=== PATIENT | male | born 1980 | race Caucasian/White ===

== ENCOUNTER 2022-03-01 11:00 | Outpatient (CLI) | payer OTHER, SELFPAY ==
[2022-03-01 12:09] LABS: Basophils # 0.1 10^3/uL (0.0-0.1); Eosinophils # 0.6 10^3/uL (0.0-0.8); Eosinophils % 7.2 %; Hematocrit 45.3 % (42.0-52.0); Hemoglobin 15.5 g/dL (11.7-16.6); Lymphocytes # 1.7 10^3/uL (0.8-4.8); Lymphocytes % 21.6 %; Mean Corpuscular HGB Conc 34.2 g/dL (30.0-36.0); Mean Corpuscular Hemoglobin 31.8 pg (28.0-34.0); Mean Corpuscular Volume 92.8 fl (80-94); Mean Platelet Volume 9.5 fL (7.4-10.4); Monocytes # 0.6 10^3/uL (0.2-0.9); Monocytes % 7.7 %; Neutrophils # 4.86 10^3/uL (1.8-7.7); Neutrophils % 62.1 %; Nucleated Red Blood Cells % 0 %; Platelet Count 287 10^3/cmm (130-400); Red Blood Count 4.88 10^6/uL (4.1-5.3); Red Cell Distribution Width 11.9 % (12.1-15.1); White Blood Count 7.8 10^3/uL (4.0-10.0)
[2022-03-01 12:21] LABS: Chol HDL Ratio 4.47 mg/dL (1.0-5.00); Cholesterol 152 mg/dL (0-200); HDL Cholesterol 34 mg/dL (60-100); LDL Cholesterol Calculated 101 mg/dL (50-129); LDL HDL Ratio 2.97 RATIO (0.00-3.22); Thyroid Stimulating Hormone 1.66 uIU/mL (0.27-4.20); Triglycerides 83 mg/dL (0-150)
== END 2022-03-01 11:01 | disposition home or self-care (01) ==
LOC: LAB 11:10
PROVIDERS: PCP Family Medicine; Visit Provider Family Medicine
DX: I10 Essential (primary) hypertension (principal)
CPT/HCPCS: 36415; 80061; 84443; 85025

== ENCOUNTER 2022-06-13 15:07 | Emergency (ER) | payer OTHER, SELFPAY ==
[2022-06-13 15:09] VITALS: BP 133/90; PULSE 81; RESP 14; TEMP 36.6; O2SAT 99
--- NOTE | 2022-06-13 15:21 | W.ED.SKABFB ---
HPI - Skin/Abscess/Foreign Bdy General: Chief complaint: Skin/Abscess/Foreign Body Stated complaint: allergic reaction to meds Time Seen by Provider: 06/13/22 15:15 History of Present Illness: This patient is a 42 year old with a rash that he attributes to an allergic reaction to antibiotics. He was started on clindamycin 8 days ago for cellulitis on the left lower leg. That has improved, but he woke up this morning with this rash. He has had previous rashes like this whenever he takes anything with aspirin or ibuprofen. He also gets throat swelling and chest tightness with it sometimes - not too bad today. He took benadryl 50 mg early this morning and it helped some, but it got bad again this afternoon. he took another 50 mg at around 1:30 but it didn't seem to do much. The cellulitis is much better. He has had diarrhea this week which he assumed was from the antibiotic. PFS ED PFSH: Family History Father Diabetes Social History Smoking and tobacco status: former smoker Second hand smoke exposure: No Smoking risk assessment/counseling performed?: No Alcohol intake: never Desire information about alcohol rehabilitation?: No Counseling given: No Desire information about substance/drug rehabilitation?: No Counseling given: No Adopted: No Caregiver/support person: No Lives independently: Yes Household members: spouse Housing: House Marital status: Number of children: 0 Highest education level completed: Associate Degree: Occupational, Technical, Vocational Program service: No Current occupational status: employed History of recent travel: No Physical Exam Const: COMMON NORMALS: no acute distress, patient oriented x3, no limitations and alert GENERAL APPEARANCE: cooperative and comfortable HENMT: HEAD & SCALP: normal to inspection FACE & SINUS: normal facial exam Eye: GENERAL EYE: appearance normal, both eyes and all related structures Neck/C-Spine: COMMON NORMALS: supple, no meningeal signs and no JVD Chest: COMMONS NORMALS: normal inspection of the chest Resp: COMMON NORMALS: normal respiratory effort, No use of accessory muscles and clear to auscultation bilaterally AUSCULTATION: clear to auscultation bilaterally Cardio: COMMON NORMALS: no JVD, regular rate, regular rhythm and No murmurs present (Cardio) RATE: regular rate RHYTHM: regular rhythm GI: COMMON NORMALS: Normal to inspection, nondistended, normoactive bowel sounds present, Soft to palpation and non-tender INSPECTION: Yes normal to inspection AUSCULTATION: Yes normoactive bowel sounds PALPATION: Yes Soft to palpation Back/Pelvis: COMMON NORMALS: thoracic and lumbar spine normal to inspection Extremity: COMMON NORMALS: normal to inspection Neuro: COMMON NORMALS: patient oriented x3, moves all extremities, no focal motor deficits and no sensory deficits noted SENSORIUM/ORIENTATION: Yes alert MENINGEAL SIGNS: Yes no meningeal signs Psych: COMMON NORMALS: mental status grossly normal, cooperative and normal affect Skin: NARRATIVE SKIN EXAM: maculopapular skin rash diffusely on extremities,torso, face Course Vital Signs: Vital signs: Vital Signs Temperature 97.8 F 06/13/22 15:09 Pulse Rate 95 06/13/22 15:40 Respiratory Rate 16 06/13/22 15:40 Blood Pressure 133/90 06/13/22 15:09 Pulse Oximetry 96 06/13/22 15:40 Oxygen Delivery Me thod 06/13/22 15:09 MDM - Skin/Abscess/Foreign Bdy Medicial Decision Making On clindamycin for cellulitis which is resolved. Benadryl minimal help. No anaphylaxis. Prior episodes of anaphylaxis with aspirin. Will give steroids for a few days, pepcid. Stop clindamycin. Discharge Plan Discharge Patient Disposition: Home Clinical Impression: Allergic reaction to drug Condition: Stable Prescriptions: New prednisone 20 mg tablet 40 mg PO DAILY 3 Days Qty: 6 0RF Discontinued clindamycin HCl 300 mg capsule 300 mg PO TID Qty: 30 0RF No Action lisinopril 10 mg tablet 10 mg PO DAILY omeprazole 40 mg capsule,delayed release(DR/EC) 40 mg PO DAILY Discharge Orders: Discharge ED (Routine); Ordered 06/13/22 Ordered By: Sophia Aguilera Referrals: Fide Leonardo FNP-C [Primary Care Provider] - Discharge Diet: Usual diet Discharge Activity: Resume usual activity Patient Instructions: Opioid Safety, Pain Management Activity Restrictions/Additional Instructions: Continue Benadryl 1 - 2 tablets every 6 hours if needed. Take pepcid over the counter, 2 tabs daily for the next few days. Take the prednisone as prescribed. Return to the ED if new or worse symptoms. Coding Level of Care Code ED Link Trainer Operator for Chg Fwd Exam Comprehensive
--- NOTE | 2022-06-13 15:23 | PC.NURSE ---
pt reports was started on clindamycin for cellulitis in his legs. pt reports rash began today. denies any airway involvement, no dyspnea noted. lung sounds clear bilat.
[2022-06-13] MEDS: famotidine 20 mg Tablet 40 MG PO (15:27)
[2022-06-13] MEDS: predniSONE 20 mg Tablet 60 MG PO (15:27)
[2022-06-13 15:40] VITALS: PULSE 95; RESP 16; O2SAT 96
== END 2022-06-13 15:41 | disposition home or self-care (01) ==
PROVIDERS: Emergency Provider Emergency Medicine; PCP Nurse Practitioner Family
DX: L27.0 Generalized skin eruption due to drugs and medicaments taken internally (principal); T36.8X5A Adverse effect of other systemic antibiotics, initial encounter; Z87.891 Personal history of nicotine dependence
CPT/HCPCS: 99283; J7512

== ENCOUNTER → 2022-07-27 08:54 | Outpatient (BNVA) | payer OTHER, SELFPAY | PROVIDERS: PCP Nurse Practitioner Family; Visit Provider Dermatology | DX: Z01.89 Encounter for other specified special examinations (principal) ==

== ENCOUNTER → 2022-09-14 08:25 | Outpatient (BNVA) | payer OTHER, SELFPAY | PROVIDERS: PCP Nurse Practitioner Family; Visit Provider Nurse Practitioner | DX: R05.9 Cough, unspecified (principal) | CPT/HCPCS: 71046; 80048; 85025 ==

== ENCOUNTER 2023-02-14 14:12 | Emergency (ER) | payer OTHER, SELFPAY ==
[2023-02-14 14:19] VITALS: BP 113/76; PULSE 89; RESP 16; TEMP 36.9; O2SAT 97; BMI 22.8
--- NOTE | 2023-02-14 14:36 | XR_ITS ---
WS: [id number] EXAMINATION: XR tibia fibula LT 2V [id number] REASON FOR EXAM: Lower extremity injury COMPARISON: None available. ORDER DATE: 02/14/2023 2:38 PM FINDINGS: There is no sign of any acute osseous or articular abnormality. There are no specific soft tissue abn ormalities. IMPRESSION: No acute change
--- NOTE | 2023-02-14 14:45 | XR_ITS ---
WS: [id number] EXAMINATION: XR ankle LT min 3V* [id number] REASON FOR EXAM: trauma/injury COMPARISON: None available. ORDER DATE: 02/14/2023 2:45 PM TECHNIQUE: 3 views of the left ankle were obtained. X-RAY FINDINGS: There is normal alignment. There is no evidence of acute osseous or soft tissue changes. IMPRESSION: No fractures or dislocations of the left ankle.
--- NOTE | 2023-02-14 14:45 | XR_ITS ---
WS: [id number] EXAMINATION: XR knee LT 3V* [id number] REASON FOR EXAM: trauma COMPARISON: None available. ORDER DATE: 02/14/2023 2:45 PM FINDINGS: There is no sign of any acute osseous or articular abnormality. Small spurs are seen on the tibial sp garo. There are no specific soft tissue abnormalities. IMPRESSION: Minor degenerative changes.
--- NOTE | 2023-02-14 14:46 | W.ED.LOWEXIN ---
HPI - Extremity Injury (Lower) General: Chief Complaint: Extremity Injury, Lower Stated Complaint: left lower leg pain Time Seen by Provider: 02/14/23 14:13 Source: patient and family Mode of arrival: wheelchair Limitations: no limitations History of Present Illness: Patient is a 42-year-old male who presents to ED today with complaint of left lower extremity injury that he sustained just prior to arrival after a tree/branch fell onto it. He states the knee struck his left knee, lower leg, and ankle. He states he is not able to bear weight on the extremity secondary to discomfort. He denies numbness, tingling, loss of sensation, color/temperature changes. MD complaint: knee injury, leg injury and ankle injury Onset (ago): hour(s) Injury: Left: knee and ankle Place: home Severity: moderate Relieving factors: immobilization Exacerbating factors: weight bearing, movement and palpation Context: direct blow Associated symptoms: Reports inability to bear weight Other symptoms: none Review of Systems Card: Denies: chest pain Resp: Denies: dyspnea Musc: Reports: extremity pain (L tib/fib) and joint pain (L knee/ankle); Denies: extremity swelling, joint swelling, joint redness or joint warmth Neuro: Denies: numbness in extremities, weakness in extremities or sensory changes PFSH ED PFSH: Medical History Acid reflux Cellulitis Left leg 2022 Essential hypertension Surgical History Hx of neck surgery Plate and screws 2013 Family History Father Diabetes Other Cancer Hypertension Denies family history of CAD (coronary artery disease) Chronic kidney disease (CKD) Stroke Social History Smoking and tobacco status: former smoker Second hand smoke exposure: No Smoking risk assessment/counseling performed?: No Alcohol intake: unknown Desire information about alcohol rehabilitation?: No Counseling given: No Substance/Drug Use: unknown Desire information about substance/drug rehabilitation?: No Counseling given: No Adopted: No Caregiver/support person: No Lives independently: Yes Household members: spouse Housing: House Marital status: Number of children: 0 Highest education level completed: Associate Degree: Occupational, Technical, Vocational Program service: No Current occupational status: employed Physical Exam Const: COMMON NORMALS: no acute distress, average body habitus, patient oriented x3, no limitations, alert and well nourished Extremity: COMMON NORMALS: full ROM, capillary refill normal, no joint enlargement, no clubbing, cyanosis or edema, no calf tenderness and no pedal edema GENERAL: Yes normal exam except as noted LEFT LOWER EXTREMITY: Yes knee joint, Yes lower leg and Yes ankle joint OTHER: TTP to medial joint, anterior lower tib/fib and medial ankle all without notable swelling or bony deformity; compartments are soft; distal pulses, cap refill, and sensation are all normal Neuro: COMMON NORMALS: patient oriented x3 SENSORIUM/ORIENTATION: Yes alert Course Vital Signs: Vital signs: Vital Signs Temperature 98.4 F 02/14/23 14:19 Pulse Rate 89 02/14/23 14:19 Respiratory Rate 16 02/14/23 14:19 Blood Pressure 113/76 02/14/23 14:19 Pulse Oximetry 97 02/14/23 14:19 Oxygen Delivery Me thod Room Air 02/14/23 14:19 MDM - Extremity Injury (Lower) Medical Decision Making XR negative. He has crutches at home. Normally takes hydrocodone for chronic pain-he can continue this as needed. Recommend ice, elevation, and weightbearing as tolerated. Recommend following up with primary care in a week or so if symptoms do not seem to be improving. Return to ED precautions discussed with patient. All radiology interpretation(s) finalized by discharge Discharge Plan Discharge Patient Disposition: Home Clinical Impression: Crushing injury of left lower leg Qualifiers: Encounter type: initial encounter Qualified Code(s): S87.82XA - Crushing injury of left lower leg, initial encounter Condition: Stable Prescriptions: No Action ondansetron 4 mg tablet,disintegrating 4 mg PO Q8H PRN (Reason: nausea and vomiting) Qty: 10 0RF famotidine [Pepcid] 40 mg tablet 40 mg PO DAILY Qty: 90 1RF Rx Instructions: stop Prilosec doxycycline hyclate [Vibramycin] 100 mg capsule 100 mg PO BID Qty: 14 0RF hydrocodone-acetaminophen 7.5-325 mg tablet PO Probiotic Digestive Care 20 billion cell capsule See Rx Instructions PO DAILY Qty: 30 0RF Rx Instructions: 20 billion cell orally daily; lisinopril 10 mg tablet 10 mg PO DAILY Qty: 90 0RF Discharge Orders: Discharge ED (Routine); Ordered 02/14/23 Ordered By: Radha Templeton Referrals: Fide Leonardo FNP-C [Primary Care Provider] - Coding Level of Care Code ED Surface Plate Inspector for Alejandro Guardado
== END 2023-02-14 15:41 | disposition home or self-care (01) ==
PROVIDERS: Emergency Provider Physician Assistant; PCP Nurse Practitioner Family
DX: S87.82XA Crushing injury of left lower leg, initial encounter (principal); I10 Essential (primary) hypertension; Z87.891 Personal history of nicotine dependence; W20.8XXA Other cause of strike by thrown, projected or falling object, initial encounter
CPT/HCPCS: 73562; 73590; 73610; 99283

== ENCOUNTER 2023-03-08 12:24 | Outpatient (CLI) | payer OTHER, SELFPAY ==
--- NOTE | 2023-03-08 16:45 | MR_ITS ---
WS: [id number] MRI LEFT KNEE NONCONTRAST TECHNIQUE: Axial PD, coronal PD fat sat, coronal PD, sagittal PD, and sagittal PD fat-sat images obta ined. CLINICAL INFORMATION: S89.92XA - Unspecified injury of left lower leg, initial ... COMPARISON: None. FINDINGS: Some images degraded by motion artifact. Distal quadriceps and patella tendons are intact. Small suprapatellar effusion. Small amount of prepa tellar and infrapatellar soft tissue edema. Lateral subluxation of the patella on the trochlear groov e with diffuse edema and hematoma involving the medial femoral soft tissues this extends deep to the medial collateral ligament and articular capsule posteriorly. Tearing of the medial and inferior ordaz lla and infrapatellar retinacula posteriorly. Retinaculum distally at the patella insertion is intact . Lateral patellar retinaculum is intact. Tear of the medial collateral ligament at the origin. Mid a nd distal fibers appear intact. Lateral collateral ligament appears intact. Mild peripheral extrusion of the medial and lateral menis cus. Complex tear involving the anterior horn lateral meniscus extending to the articular surface. Bl unting of the anterior horn. Diffuse edema involving the lateral tibial plateau with tibial plateau f racture. Minimal depression measuring 2 mm. Additional bony edema extends to the fibula head. Recomme nd correlation for posterolateral corner injury. Possible additional nondisplaced fracture involving the fibula head. Suspected partial tear of the popliteus. IMPRESSION: 1. Lateral patella subluxation/dislocation with tearing of the medial patella retinaculum proximally at the articular capsule with fluid and hematoma along the medial femoral condyle. Tear involving th e origin of the medial collateral ligament. Distal ligament appears intact. 2. Medial patellar retinaculum at patella insertion is intact. No visualized intra-articular loose b odies. 3. Moderate to advanced chondromalacia patella. Small joint effusion. 4. Nondisplaced lateral tibial plateau fracture with depression measuring 2 mm. 5. Additional suspected nondisplaced fracture involving the fibular head with posterolateral corner injury. Fluid and edema along the fibula head. 6. Complex tear involving the anterior horn lateral meniscus extending to the articular surface. 7. Mild peripheral extrusion of the medial and lateral menisci. Outbridge grading: grade IV: full-thickness cartilage loss with underlying bone reactive changes
== END 2023-03-08 12:25 | disposition home or self-care (01) ==
PROVIDERS: PCP Nurse Practitioner Family; Visit Provider Nurse Practitioner Family
DX: S83.015A Lateral dislocation of left patella, initial encounter (principal); S83.412A Sprain of medial collateral ligament of left knee, initial encounter; S82.145A Nondisplaced bicondylar fracture of left tibia, initial encounter for closed fracture; S83.272A Complex tear of lateral meniscus, current injury, left knee, initial encounter; X58.XXXA Exposure to other specified factors, initial encounter; M22.42 Chondromalacia patellae, left knee; M25.462 Effusion, left knee; M25.562 Pain in left knee; R26.89 Other abnormalities of gait and mobility; Z99.89 Dependence on other enabling machines and devices
CPT/HCPCS: 73721

== ENCOUNTER → 2023-04-28 10:44 | Outpatient (BNVA) | payer OTHER, SELFPAY | PROVIDERS: PCP Nurse Practitioner Family; Visit Provider Nurse Practitioner | DX: S82.122D Displaced fracture of lateral condyle of left tibia, subsequent encounter for closed fracture with routine healing; S82.832D Other fracture of upper and lower end of left fibula, subsequent encounter for closed fracture with routine healing; S83.272D Complex tear of lateral meniscus, current injury, left knee, subsequent encounter; W20.8XXD Other cause of strike by thrown, projected or falling object, subsequent encounter | CPT/HCPCS: 73562 ==

== ENCOUNTER → 2023-05-26 08:02 | Outpatient (BNVA) | payer OTHER, SELFPAY | PROVIDERS: PCP Nurse Practitioner Family; Visit Provider Nurse Practitioner | DX: S82.832D Other fracture of upper and lower end of left fibula, subsequent encounter for closed fracture with routine healing (principal); S82.122D Displaced fracture of lateral condyle of left tibia, subsequent encounter for closed fracture with routine healing; S83.272D Complex tear of lateral meniscus, current injury, left knee, subsequent encounter; W20.8XXD Other cause of strike by thrown, projected or falling object, subsequent encounter | CPT/HCPCS: 73562 ==

== ENCOUNTER → 2024-12-27 15:06 | Outpatient (BNVA) | payer OTHER, SELFPAY | PROVIDERS: PCP Nurse Practitioner Family; Visit Provider Clinical Nurse Specialist Adult Health | DX: I10 Essential (primary) hypertension (principal) | CPT/HCPCS: 80053; 80061; 83036; 85025 ==